=== PATIENT | female | born 1990 | race Two or more races ===

== ENCOUNTER 2017-01-29 15:11 | Emergency (ER) | payer SELFPAY ==
[~2017-01-29] VITALS: Ht 160 cm; Wt 69.0 kg
[2017-01-29 15:15] VITALS: BP 107/54
[2017-01-29] MEDS ORDERED: CEFTRIAXONE SODIUM 250 MG/VIAL IM ONE (16:15)
[2017-01-29] MEDS ORDERED: AZITHROMYCIN 500 MG TABLET PO ONE (16:15)
[2017-01-29] MEDS ORDERED: LIDOCAINE HCL 1% 20ML VIAL (Pyxis) INJ MC ONE (16:15)
[2017-01-29 17:31] LABS: CLARITY URINE CLEAR (CLEAR); COLOR URINE YELLOW (YELLOW); GLUCOSE URINE NEGATIVE (NEGATIVE); KETONES URINE NEGATIVE (NEGATIVE); LEUKOCYTE ESTERASE URINE TRACE (NEGATIVE); NITRITE URINE NEGATIVE (NEGATIVE); OCCULT BLOOD URINE NEGATIVE (NEGATIVE); PROTEIN URINE NEGATIVE (NEGATIVE)
== END 2017-01-29 17:36 | disposition home or self-care (01) ==
LOC: ER 15:25
DX: Z20.2 Contact with and (suspected) exposure to infections with a predominantly sexual mode of transmission (principal); Z30.09 Encounter for other general counseling and advice on contraception; F17.210 Nicotine dependence, cigarettes, uncomplicated; F12.10 Cannabis abuse, uncomplicated
CPT/HCPCS: 81001; 81025; 96372; 99283; J0696; J3490

== ENCOUNTER 2017-07-19 21:05 | Emergency (ER) | payer MEDICAID ==
[~2017-07-19] VITALS: Ht 165.1 cm; Wt 61.0 kg
[2017-07-19 21:05] VITALS: BP 106/76
== END 2017-07-19 22:14 | disposition left against medical advice (07) ==
LOC: ER 21:05
DX: R51 Headache (principal); Z53.21 Procedure and treatment not carried out due to patient leaving prior to being seen by health care provider